=== PATIENT | male | born 1965 | race Hispanic/Latino ===

== ENCOUNTER 2019-12-17 10:57 | Observation (INO) | payer BC ==
[~2019-12-17] VITALS: Ht 160 cm; Wt 72.6 kg
[~2019-12-17 10:57] MED LIST: COZAAR25 MG PO; FLUCONAZOLE100 MG PO; HUMALOG100 UNIT/3 SC; Insulin Detemir SQ; Insulin Lispro SQ; LIPITOR10 MG PO; METFORMIN HCL500 MG PO; MINOCYCLINE HCL50 MG PO
[2019-12-17 11:28] LABS: BASOPHILS % 0.6 % (0.0-1.0); EOSINOPHILS # (AUTO) 0.1 (0.0-0.4); HEMATOCRIT 31.1 % (38.2-49.6); HEMOGLOBIN 10.1 g/dL (14.0-18.0); LYMPHOCYTES # (AUTO) 1.2 (1.0-3.2); MEAN CORPUSCULAR HEMOGLOBIN 27.2 pg (28-32); MEAN CORPUSCULAR HGB CONC 32.5 g/dL (31-35); MEAN CORPUSCULAR VOLUME 83.6 fL (81-99); MONOCYTES # (AUTO) 0.5 (0.2-0.8); NEUTROPHILS % 73.3 % (38.7-80.0); PLATELET COUNT 300 x10e3/uL (140-360); RED BLOOD COUNT 3.72 x10e6/uL (4.3-5.7); RED CELL DISTRIBUTION WIDTH 12.2 % (11.7-14.4)
[2019-12-17] MEDS ORDERED: AMLODIPINE BESYLATE 10 MG TAB PO ONE (11:30)
--- NOTE | 2019-12-17 11:35 | Emergency Department Note ---
History of Present Illnes History of Present Illness Chief Complaint: Hypertension History of Present Illness This is a 54 year old male Chief Complaint Comment PATIENT HAS HAD A HEADACHE AND N/V FOR 3 DAYS. PATIENT BROUGHT IN BY EMS WITH BP OF 220/113. PATIENT HAS HSTORY OF DIABETES AND GALLBLADDER REMOVAL. HAS NOT SEEN A PCP IN ABOUT 2 YEARS. Historian: Patient, Family Member EMS Treatment LINUX ADMIN: IV, EKG, See EMS Report Additional Treatment LINUX ADMIN: 1 SPRAY OF NITRO Telecom Analyst Required: No Onset (how long ago): day(s) (3) Location: Head Quality: Pain Radiation: Reports non-radiation Severity: mild Onset quality: gradual Duration (how long): day(s) (3) Timing of current episode: intermittent Progression: resolved Chronicity: new Context: Denies recent illness, Denies recent surgery Relieving factors: none Exacerbating factors: none Associated symptoms: Reports denies other symptoms Treatments prior to arrival: none Past Medical/Family History Physician Review I have reviewed the patient's past medical and family history. Any updates have been documented here. Past Medical History Recent Fever: No Clinical Suspicion of Infectio: No New/Unexplained Change in Ment: No Past Medical History: Diabetes Other Medical History: Hyperlipidemia Past Surgical History: Cholecysctectomy Social History Smoking Cessation: Former smoker Counseling Performed: No Alcohol Use: Social Any Illegal Drug Use: No Physically hurt or threatened: No Other Last Tetanus: OOD Any Pre-Existing Lines (PICC,: No Review of Systems Review of Systems Constitutional: Reports as per HPI EENTM: Reports no symptoms Cardiovascular: Reports no symptoms Respiratory: Reports no symptoms Gastrointestinal: Reports no symptoms Genitourinary: Reports no symptoms Musculoskeletal: Reports no symptoms Integumentary: Reports no symptoms Neurological: Reports as per HPI Psychological: Reports no symptoms Endocrine: Reports no symptoms Hematological/Lymphatic: Reports no symptoms Physical Exam Related Data Allergies: Coded Allergies: No Known Allergies (Unverified , 10/24/16) Triage Vital Signs Vital Signs Date Time Temp Pulse Resp B/P (MAP) Pulse Ox O2 Delivery O2 Flow Rate FiO2 12/17/19 11:23 98.4 87 17 215/97 100 Room Air Vital signs reviewed: Yes Physical Exam CONSTITUTIONAL Constitutional: Present well-developed, Present well-nourished HENT HENT: Present normocephalic, Present atraumatic, Present oropharynx clear/moist, Present nose normal HENT L/R: Present left ext ear normal, Present right ext ear normal EYES Eyes: Reports PERRL, Reports conjunctivae normal NECK Neck: Present ROM normal PULMONARY Pulmonary: Present effort normal, Present breath sounds normal CARDIOVASCULAR Cardiovascular: Present regular rhythm, Present heart sounds normal, Present capillary refill normal, Present normal rate GASTROINTESTINAL Abdominal: Present soft, Present nontender, Present bowel sounds normal GENITOURINARY Genitourinary: Present exam deferred SKIN Skin: Present warm, Present dry MUSCULOSKELETAL Musculoskeletal: Present ROM normal NEUROLOGICAL Neurological: Present alert, Present oriented x 3, Present no gross motor or sensory deficits PSYCHOLOGICAL Psychological: Present mood/affect normal, Present judgement normal Results Laboratory Result Diagram: 12/17/19 1115 Laboratory Laboratory Tests Test 12/17/19 11:15 White Blood Count 6.85 x10e3/uL (4.8-10.8) Red Blood Count 3.72 x10e6/uL (4.3-5.7) Hemoglobin 10.1 g/dL (14.0-18.0) Hematocrit 31.1 % (38.2-49.6) Mean Corpuscular Volume 83.6 fL (81-99) Mean Corpuscular Hemoglobin 27.2 pg (28-32) Mean Corpuscular Hemoglobin Concent 32.5 g/dL (31-35) Red Cell Distribution Width 12.2 % (11.7-14.4) Platelet Count 300 x10e3/uL (140-360) Neutrophils (%) (Auto) 73.3 % (38.7-80.0) Lymphocytes (%) (Auto) 18.0 % (18.0-39.1) Monocytes (%) (Auto) 7.0 % (4.4-11.3) Eosinophils (%) (Auto) 1.0 % (0.0-6.0) Basophils (%) (Auto) 0.6 % (0.0-1.0) Neutrophils # (Auto) 5.0 (2.1-6.9) Lymphocytes # (Auto) 1.2 (1.0-3.2) Monocytes # (Auto) 0.5 (0.2-0.8) Eosinophils # (Auto) 0.1 (0.0-0.4) Basophils # (Auto) 0.0 (0.0-0.1) Absolute Immature Granulocyte (auto 0.01 x10e3/uL (0-0.1) Lab results reviewed: Yes Imaging Imaging results reviewed: Yes Procedures 12 Lead ECG Interpretation ECG Interpretation : Telecom Analyst: Interpreted by ED physician Date: Dec 17, 2019 Rhythm: sinus rhythm Rate: normal QRS axis: normal ST segments normal: Yes T waves normal: Yes Clinical Impression: non-specific ECG Assessment & Plan Medical Decision Making MDM 54 Y.o M presents for HTN. he sates he has had some dizziness and POPE lately as well. He has not seen a PCP for quite some time. Workup shows elevated creatinine at 2.9. Discussed patient with Dr. Durant and will admit for hyp ertensive urgency with renal impairment which is likely chronic in nature. Reassessment Reassessment time: 12:34 Reassessment NAD Assessment & Plan Final Impression: (1) Hypertensive urgency (2) Renal impairment Depart Disposition: ADMITTED Last Vital Signs Date Time Temp Pulse Resp B/P (MAP) Pulse Ox O2 Delivery O2 Flow Rate FiO2 12/17/19 11:23 98.4 87 17 215/97 100 Room Air Home Meds Active Scripts Fluconazole (FLUCONAZOLE) 100 Mg Tablet, 200 MG PO DAILY for 10 Days, TAB Prov:PEGGY FONTAINE MD 10/27/16 Minocycline Hcl (MINOCYCLINE HCL) 50 Mg Capsule, 100 MG PO BID for 10 Days, #20 TAB Take with food to avoid stomach upset. Do not take antacid, milk, minerals, and multivitamins within 3 hours of this medication. Prov:PEGGY FONTAINE MD 10/27/16 Losartan Potassium (COZAAR) 25 Mg Tablet, 25 MG PO DAILY for 90 Days Prov:BEATRIZ DALE MD 10/27/16 [Insulin Detemir] 100 UNIT/ML PEN No Conflict Check, 20 UNIT SQ HS for 90 Days Prov:BEATRIZ DALE MD 10/27/16 Atorvastatin Calcium* (LIPITOR*) 10 Mg Tablet, 10 MG PO DAILY for 90 Days Prov:BEATRIZ DALE MD 10/27/16 Reported Medications Insulin Lispro (HUMALOG) 100 Unit/1 Ml Insuln.pen, 8 UNIT SC TID 10/27/16 Medications in the ED Amlodipine Besylate 10 mg ONCE ONCE PO ; Start 12/17/19 at 11:30; Stop 12/17/19 at 11:31; Status UNV TREVOR CHRISTIANSON MD Dec 17, 2019 11:35
--- NOTE | 2019-12-17 11:48 | Diagnostic Imaging Report ---
EXAMINATION: Head CT HISTORY: 54-year-old male with headaches, dizziness, nausea and hypertension for last 4 days. COMPARISON: None. TECHNIQUE: Helical axial images of the head were obtained. Reformatted coronal and sagittal images from the axial data. Dose modulation, iterative reconstruction, and/or weight based adjustment of the mA/kV was utilized to reduce the radiation dose to as low as reasonably achievable. Image quality: Motion/streaking artifact limits the evaluation of the skull base and posterior cranial fossa. FINDINGS: Parenchyma: 1. No abnormal densities. 2. No mass or hemorrhage. No CT evidence of acute territorial vascular insult. Extra-axial spaces:No abnormal density. No extra-axial fluid collections Brain volume: Normal for age. Ventricles: No hydrocephalus or displacement. Arteries: No density suggestive of thrombus. Dural sinuses: No abnormal density. Foramen magnum: No mass, Chiari malformation, or basilar invagination. Sella: No obvious mass. Paranasal/mastoid sinuses: Imaged portions unremarkable. Skull/Scalp: No lytic or blastic lesions. No fractures. IMPRESSION: No intracranial abnormalities. Signed by: Dr. Kiara Martell M.D. on 12/17/2019 11:45 AM
[2019-12-17 11:49] LABS: ALBUMIN 3.6 g/dL (3.5-5.0); ALBUMIN/GLOBULIN RATIO 1.4 (0.8-2.0); ANION GAP 14.4 mmol/L (8-16); CALCIUM 8.2 mg/dL (8.4-10.2); CREATININE, SERUM 2.9 mg/dL (0.72-1.25); POTASSIUM 3.4 mmol/L (3.5-5.1)
[2019-12-17] MEDS ORDERED: ONDANSETRON HCL INJ 2MG/ML 2ML 2 MG/ML VIAL IV STA (11:50)
--- NOTE | 2019-12-17 11:51 | NUR ---
Pt medicated for elevated BP.
--- NOTE | 2019-12-17 13:18 | NUR ---
[place] lim in [facility] - 12/17/19 at 1318 by CHET Attempted to call report, nurse unable at this time.
--- NOTE | 2019-12-17 13:19 | NUR ---
Attempted to call report, unable to give report at this time
--- OUTSIDE RECORDS SUMMARY | 2019-12-17 13:19 | XMS REPORT | Continuity of Care Document ---
Author Author [facility] t Organization [facility] Address [address] [place] [address] Dr. Cesar [address] [place] [phone] Phone Unavailable Care Team Providers Care Dental Office Assistant Name Role Phone Luís Gray Attphys Unavailable Problems This patient has no known problems. Allergies, Adverse Reactions, Alerts This patient has no known allergies or adverse reactions. Medications This patient has no known medications. Procedures This patient has no known procedures. Results Test Description Test Time Test Comments Results Result Comments Source CT BRAIN WO 2019-12-17 11:44:[address] [address] Patient Name: TYE ALBARRAN MR #: [id number] : 1965 Age/Sex: 54/M Req #: [id number] Adm Physician: Ordered by: Trevor Gray MD Report #: [id number] Location: ER Room/Bed: Procedure: [id number] CT/CT BRAIN WO Exam Date: 12/17/19 Exam Time: 1130 REPORT STATUS: Signed EXAMINATION: Head CT HISTORY: 54-year-old male with headaches, dizziness, nausea and hypertension for last 4 days. COMPARISON: None. TECHNIQUE: Helical axial images of the head were obtained. Reformatted coronal and sagittal images from the axial data. Dose modulation, iterative reconstruction, and/or weight based adjustment of the mA/kV was utilized to reduce the radiation dose to as low as reasonably achievable. Image quality: Motion/streaking artifact limits the evaluation of the skull base and posterior cranial fossa. FINDINGS: Parenchyma: 1. No abnormal densities. 2. No mass or hemorrhage. No CT evidence of acute te rritorial vascular insult. Extra-axial spaces:No abnormal density. No extra-axial fluid collections Brain volume: Normal for age. Ventricles: No hydrocephalus or displacement. Arteries: No density suggestive of thrombus. Dural sinuses: No abnormal density. Foramen magnum: No mass, Chiari malformation, or basilar invagination. Sella: No obvious mass. Paranasal/mastoid sinuses: Imaged portions unremarkable. Skull/Scalp: No lytic or blastic lesions. No fractures. IMPRESSION: No intracranial abnormalities. Signed by: Dr. Gretel Martell M.D. on 12/17/2019 11:45 AM Dictated By: GRETEL MARTELL MD [id number] Transcribed By: SHANDRA on 12/17/19 1141 COPY TO: TREVOR GRAY MD
--- NOTE | 2019-12-17 13:45 | NUR ---
Report given to Luz Maria SAUNDERS on Med-surg 1
[2019-12-17] MEDS ORDERED: POTASSIUM CHLORIDE 20 MEQ TAB CR PO ONE (14:00)
[2019-12-17 14:16] VITALS: BP 193/97
[2019-12-17] MEDS ORDERED: INSULIN LISPRO 8 UNIT SC SCH (15:00)
[2019-12-17] MEDS ORDERED: INSULIN LISPRO 100 UNIT/1 ML 3ML VIAL SQ SCH (16:30)
[2019-12-17] MEDS ORDERED: MINOCYCLINE HCL 50 MG CAP PO SCH (17:00)
[2019-12-17] MEDS ORDERED: INSULIN DETEMIR 20 UNIT SQ SCH (21:00)
[2019-12-17] MEDS ORDERED: INSULIN GLARGINE 100 UNITS/ML VIAL SQ SCH (21:00)
--- NOTE | 2019-12-17 21:26 | History and Physical ---
HISTORY OF PRESENT ILLNESS: A [id number] male with past medical history positive for hypertension, diabetes, and chronic renal failure came here with headache. He was found to have extremely high blood pressure. He was given Norvasc and the blood pressure dropped to 107/40s. The patient is asymptomatic, ready to go home. CT of the head came back negative. He had evidence of chronic renal failure. REVIEW OF SYSTEMS: CARDIOVASCULAR: No chest pain or palpitation. RESPIRATORY: No shortness of breath. No cough. GASTROINTESTINAL: No nausea or vomiting. No diarrhea. GENITOURINARY: No frequency or dysuria. ALLERGIES: NOT ALLERGIC TO ANYTHING. SOCIAL HISTORY: He does not smoke. He used to drink, he does not drink anymore. PAST MEDICAL HISTORY: Hypertension and diabetes. PHYSICAL EXAMINATION: VITAL SIGNS: Blood pressure is 107/55, temperature 98.4, heart rate 87 per minute, respiratory rate 18 per minute, oxygen saturation 99%. HEART: Regular rhythm. Normal S1, S2 sound. LUNGS: Clear bilaterally. ABDOMEN: Soft. EXTREMITIES: No edema. NEUROLOGIC: Alert and oriented x3. No motor deficits. LABORATORY DATA: On the CBC, white blood count 6.85, hemoglobin 10.1, hematocrit 31.1, and platelet count 300,000. On the BMP; sodium 140, potassium 3.4, chloride 109, CO2 20, BUN 27, creatinine 2.90, glucose 146, calcium 9.2, total bilirubin 0.5, AST 12, ALT 17, alkaline phosphatase 134, total protein 6.2, albumin 3.6, globulin 2.6. CT of the head, essentially no intracranial abnormalities. IMPRESSION: 1. Hypertensive emergency. 2. Chronic renal failure stage 3. 3. Uncontrolled diabetes mellitus type 2 with diabetic nephropathy. PLAN OF TREATMENT: The patient has been started on amlodipine 5 mg daily. We are going to increase losartan to 50 mg daily, potassium 40 mEq x1. Continue Lantus 20 units at bedtime, continue Lipitor 10 mg daily. The patient is going to be discharged home today since the blood pressure is back to normal. Follow up with his primary care physician in a week. MD NICOLE Woodson/MODL /[id number]
--- NOTE | 2019-12-18 08:13 | Discharge Summary ---
HOSPITAL COURSE: A 54-year-old male with past medical history positive for hypertension and diabetes. The patient came to the hospital complaining of headache. He was found to have extremely high blood pressure of 200. He received amlodipine 10 mg x1. The blood pressure dropped to systolic in the 107. The patient is asymptomatic. He is going home today. I am going to increase the losartan and going to start on amlodipine, particularly blood pressure regimen. He is going home today. PHYSICAL EXAMINATION: HEART: Showed regular rhythm. Normal S1, S2 sound. LUNGS: Clear bilaterally. ABDOMEN: Soft. EXTREMITIES: Show no edema. IMPRESSION: 1. Hypertensive emergency. 2. Chronic renal failure stage 3 secondary to most likely diabetic nephropathy. 3. Uncontrolled diabetes mellitus type 2 with diabetic nephropathy. PLAN OF TREATMENT: The patient going to be discharged on amlodipine 5 mg daily. Continue Lantus 10 units at bedtime, continue losartan at a higher dose to 50 mg daily, Humalog 8 units before each meal, Lipitor 10 mg daily. He received potassium 40 mEq IV x1 because the potassium 3.4. The patient going to follow with his primary care physician in a week and also he is going to be sent to Dr. Gonsalez, Nephrology because of renal insufficiency in a week. Diet is going to be 1800 calorie ADA renal diet. MD NICOLE Woodson/JEFFL /[id number]
[2019-12-18] MEDS ORDERED: ATORVASTATIN 10 MG TAB PO SCH (09:00)
[2019-12-18] MEDS ORDERED: LOSARTAN POTASSIUM 25 MG TAB PO SCH (09:00)
[2019-12-18] MEDS ORDERED: FLUCONAZOLE 100 MG TAB PO SCH (09:00)
== END 2019-12-17 14:21 | disposition home or self-care (01) ==
LOC: ER 11:05 → ERHOLD 12:33
PROVIDERS: ADMIT Internal Medicine; ATTEND Internal Medicine
DX: I16.0 Hypertensive urgency (principal); I12.9 Hypertensive chronic kidney disease with stage 1 through stage 4 chronic kidney disease, or unspecified chronic kidney disease; E11.22 Type 2 diabetes mellitus with diabetic chronic kidney disease; N18.3 Chronic kidney disease, stage 3 (moderate); E11.21 Type 2 diabetes mellitus with diabetic nephropathy; Z79.4 Long term (current) use of insulin
CPT/HCPCS: 36415; 70450; 80053; 85025; 93005; 99284; G0378; J2405